=== PATIENT | male | born 1935 | race Caucasian/White ===

== ENCOUNTER 2019-09-29 16:28 | Outpatient (CLI) | payer MEDICARE, OTHER | END 2019-09-29 16:29 | disposition short-term general hospital (02) | LOC: EMS 16:28 | PROVIDERS: ATTEND Surgery | DX: S79.912A Unspecified injury of left hip, initial encounter (principal); W01.198A Fall on same level from slipping, tripping and stumbling with subsequent striking against other object, initial encounter; Y93.01 Activity, walking, marching and hiking; Y92.009 Unspecified place in unspecified non-institutional (private) residence as the place of occurrence of the external cause | CPT/HCPCS: A0425; A0427 ==

== ENCOUNTER 2022-01-19 16:56 | Outpatient (CLI) | payer MEDICARE, OTHER | END 2022-01-19 16:57 | disposition left against medical advice (07) | LOC: EMS 16:56 | DX: Z03.89 Encounter for observation for other suspected diseases and conditions ruled out (principal) ==

== ENCOUNTER 2022-01-27 16:02 | Outpatient (CLI) | payer MEDICARE, OTHER | END 2022-01-27 16:03 | disposition EMS.NT | LOC: EMS 16:02 | DX: R53.1 Weakness (principal) ==

== ENCOUNTER 2022-02-16 10:46 | Outpatient (CLI) | payer MEDICARE, OTHER | END 2022-02-16 10:47 | disposition EMS.NT | LOC: EMS 10:46 | DX: Z03.89 Encounter for observation for other suspected diseases and conditions ruled out (principal) ==

== ENCOUNTER 2022-12-09 13:17 | Emergency (ER) | payer MEDICARE, OTHER ==
--- OUTSIDE RECORDS SUMMARY | 2022-12-09 14:17 | EXTERNAL MEDICAL SUMMARY RPT | Continuity of Care Document ---
Author Name Unknown Address [address] [place] [address] Phone Organization [facility] Address [address] [place] [address] Phone Care Team Providers Care Stockholder Name Role Phone Unavailable Unavailable Unavailable Jomar Bentley, Angel Unavailable Unavailable Em Patient Registrar Ii, Keiko Unavailab le Unavailable Medications date description facility 2022-12-09 00:00 paroxetine hcl [facility] 2022-12-09 00:00 paroxetine hcl [facility] 2022-12-09 00:00 paroxetine hcl [facility] 2022-12-09 00:00 paroxetine hcl [facility] Problems date description facility 2022-12-09 00:00 Edema of foot [facility] 2022-12-09 00:00 No current problems or disability - unknown [facility] 2022-12-09 00:00 History of fall [facility] 2022-12-09 00:00 Edema [facility] 2022-12-09 00:00 Localized edema [facility] 2022-12-09 00:00 Personal history of fall [facility] 2022-12-09 00:00 History of falling [facility] Procedures date description facility 2022-12-09 00:00 Visit Code Hold [facility] Social History date description facility 2022-12-09 00:00 Never smoker [facility] 2022-12-09 00:00 Unknown if ever smoked [facility] [place] Vital Signs date measurement value units 2022-12-09 00:00 BMI 19.78 kg/m2 2022-12-09 00:00 BP_diastolic 70 mmHg 2022-12-09 00:00 BP_systolic 139 mmHg 2022-12-09 00:00 heart_rate 61 /min 2022-12-09 00:00 height_metric 187.96 cm 2022-12-09 00:00 height_standard 74 in 2022-12-09 00:00 respiration_rate 15 /min 2022-12-09 00:00 temperature_metric 36.28 C 2022-12-09 00:00 temperature_standard 97.3 F 2022-12-09 00:00 weight_metric 69.63 kg 2022-12-09 00:00 weight_standard 153.5 lb
--- NOTE | 2022-12-09 14:18 | ED Physician Documentation ---
History of Present Illness - Stated complaint Stated Complaint: SENT BY PCP - Chief complaint Chief Complaint: Ext Problem - Additonal information Additional information: 87-year-old male presents to the emergency department for evaluation of progressive lower extremity leg swelling that began about 1 week ago. Patient does have a history of dementia. His provides most of the history. States that with his dementia has been having increasing mobility issues so has been staying in bed much of the time. She has noticed over the last week that his legs have started to swell. He has not had any complaints of chest pain, shortness of air or hemoptysis. He takes no prescribed medications with the exception of paroxetine. Review of Systems Unable to obtain: Dementia Cardiac: reports: Other (Lower extremity swelling bilaterally) PD PAST MEDICAL HISTORY - Past Medical History Neuro: Dementia - Present Medications Home Medications: Ambulatory Orders Medication Instructions Recorded Confirmed Oxycodone HCl [Roxicodone] 2.5 - 5 mg PO Q6H PRN #14 tablet 01/17/22 Apixaban [Eliquis] 5 mg PO BID #60 tablet 12/09/22 Furosemide [Lasix] 20 mg PO DAILY #3 tablet 12/09/22 - Allergies Allergies/Adverse Reactions: Allergies Allergy/AdvReac Type Severity Reaction Status Date / Time Penicillins Allergy Unknown Verified 01/17/22 15:20 - Social History Does the pt smoke?: No Does the pt have substance abuse?: No PD ED PE NORMAL - General General: No acute distress, Well developed/nourished. No: Alert and oriented X 3 (Pleasantly demented.) - HEENT HEENT: Atraumatic - Cardiac Cardiac: RRR, No murmur, Strong equal pulses, Other (2+ pitting edema bilateral lower extremities below the knee. No posterior calf pain tenderness. No erythema or induration noted. No sores or lesions.) - Respiratory Respiratory: No respiratory distress, Clear bilaterally - Abdomen Abdomen: Normal bowel sounds, Soft, Non tender, Non distended - Derm Derm: Normal color, Warm and dry, No rash - Extremities Extremities: No deformity - Neuro Neuro: travel counselor 2-12 intact Eye Opening: Spontaneous Motor: Obeys Commands Verbal: Oriented GCS Score: 15 Results - Vitals Vitals: Vital Signs - 24 hr 12/09/22 12/09/22 13:44 15:43 Temperature 36.9 C Heart Rate 71 48 L Respiratory 19 13 Rate Blood Pressure 119/79 127/63 O2 Saturation 99 98 Oxygen O2 Source Room air - EKG (time done) 1436 EKG releavant findings:: EKG personally interpreted by author of this note. Relevant findings are: Rate: Rate (enter#) (48) Rhythm: Sinus bradycardia [place]: Normal Intervals: RBBB. No: Normal [place] (Short), Prolonged QT QRS: Normal Ischemia: Non specific changes Compare to prior EKG: Old EKG unavailable Computer interpretation: Agree with computer - Labs Labs: Laboratory Tests 12/09/22 12/09/22 12/09/22 14:10 14:10 14:10 WBC 6.0 RBC 4.88 Hgb 14.3 Hct 44.0 MCV 90.2 MCH 29.3 MCHC 32.5 RDW 13.2 Plt Count 125 L MPV 9.9 Neut # (Auto) 3.8 Lymph # (Auto) 1.5 Gem # (Auto) 0.6 Eos # (Auto) 0.1 Baso # (Auto) 0.0 Absolute Nucleated RBC 0.00 Nucleated RBC % 0.0 INR (Fingerstick) Sodium 140 Potassium 3.9 Chloride 103 Carbon Dioxide 30 Anion Gap 7.0 BUN 23 H Creatinine 1.0 Estimated GFR (MDRD) 71 L Glucose 110 H Calcium 8.6 Total Bilirubin 0.9 AST 21 ALT 21 Alkaline Phosphatase 66 B-Natriuretic Peptide 163 H Total Protein 5.7 L Albumin 3.4 Globulin 2.3 Albumin/Globulin Ratio 1.5 Lipase 41 12/09/22 17:43 WBC RBC Hgb Hct MCV MCH MCHC RDW Plt Count MPV Neut # (Auto) Lymph # (Auto) Gem # (Auto) Eos # (Auto) Baso # (Auto) Absolute Nucleated RBC Nucleated RBC % INR (Fingerstick) 1.1 Sodium Potassium Chloride Carbon Dioxide Anion Gap BUN Creatinine Estimated GFR (MDRD) Glucose Calcium Total Bilirubin AST ALT Alkaline Phosphatase B-Natriuretic Peptide Total Protein Albumin Globulin Albumin/Globulin Ratio Lipase - Rads (name of study) cxr Relevant Findings:: Final report received (No consolidation. Right posterior ninth rib fracture. Appears chronic.) US DVT Relevant Findings:: Final report received (Left popliteal and peroneal DVT) PD Medical Decision Making - ED course Complexity details: reviewed results, re-evaluated patient, considered differential, d/w patient ED course: 87-year-old male who has a history of dementia presents to the emergency department for evaluation of 1 week swelling bilateral lower extremities. On exam both legs are equally swollen though the left one is mildly tender to touch. He is not on any anticoagulation. Has no history of DVT, cancer, heart failure or stroke. I did obtain CBC, electrolytes and PT/INR. Per my interpretation no acute worrisome findings. His BNP is normal. Normal renal function. Chest x-ray shows an old right-sided rib fracture but no pneumothorax, pleural effusion or findings suggest congestive heart failure. Given the mild tenderness on the left leg bilateral lower extremity ultrasounds were obtained to rule out DVT. Unfortunately there are findings of a left popliteal and peroneal DVT. I discussed this finding with the patient and his at the bedside. He will be started on Eliquis 10 mg twice daily for the next week followed by 5 mg thereafter. I have advised the that he will need referral to hematology oncology. We discussed the usual emergent return precautions for any concerns of bleeding or falls in the setting of anticoagulation. His was concerned because he is lost weight recently and has had fatigue. I discussed with her that in the setting of DVT he should be screened by his doctor for concerns of cancer. Patient is discharged home with usual emergent return precautions discussed. Impression: Dementia Left popliteal/peroneal DVT Departure - Departure Disposition: 01 Home, Self Care Clinical Impression: Swelling of both lower extremities, History of dementia Left leg DVT Qualifiers: Affected thrombotic vein of extremity: popliteal Chronicity: acute Qualified Code(s): I82.432 - Acute embolism and thrombosis of left popliteal vein Condition: Stable Record reviewed to determine appropriate education?: Yes Instructions: DVT Tx, Apixaban oral tablets Prescriptions: Apixaban [Eliquis] 5 mg PO BID #60 tablet Furosemide [Lasix] 20 mg PO DAILY #3 tablet Comments: Anthony, you were seen today in the ER because for about a week you have been having progressive swelling in both your legs. Your labs today did not show any worrisome findings. You do not have signs of heart failure. Your chest x-ray did not show any findings of pleural effusion or pneumothorax though there is an old right-sided rib fracture that is very chronic and not new today. The ultrasound that we did of both your legs does show a left leg deep vein thrombosis. It is in the popliteal and peroneal vein. Is not clear why you have developed this though sometimes blood clots can be a sign of cancer. We are starting you on anticoagulation Eliquis. The first week you will take 10 mg twice a day then you will take 5 mg twice a day thereafter. If you have any falls, hit your head, have sudden headache, slurred speech, facial droop, blood in your urine, black stools you do need to return immediately to the ER. I am starting you on a medication called Lasix which she will take for the next 3 days. This is a water pill and will help you reduce your edema. It is very important you talk about this ED visit with your primary care doctor. You should be referred to a cage cashier/oncologist for further evaluation of why you have developed the DVT. As I discussed at the bedside sometimes they are a sign of cancer and your primary care doctor may want to consider a work-up for evaluation of cancer as you have also been reporting that you are fatigued and weak
[2022-12-09 14:21] LABS: BASOPHILS % (AUTO) 0.7 %; EOSINOPHILS # (AUTO) 0.1 10^3/uL (0.0-0.7); EOSINOPHILS % (AUTO) 1.3 %; HGB - HEMOGLOBIN 14.3 g/dL (14.0-18.0); LYMPHOCYTES # (AUTO) 1.5 10^3/uL (1.5-3.5); LYMPHOCYTES % (AUTO) 24.7 %; MEAN CORPUSCULAR HEMOGLOBIN 29.3 pg (27.0-31.0); MEAN CORPUSCULAR HGB CONC 32.5 g/dL (32.0-36.0); MEAN CORPUSCULAR VOLUME 90.2 fL (80.0-94.0); MEAN PLATELET VOLUME 9.9 fL (7.4-11.4); MONOCYTES # (AUTO) 0.6 10^3/uL (0.0-1.0); MONOCYTES % (AUTO) 9.4 %; NEUTROPHILS # (AUTO) 3.8 10^3/uL (1.5-6.6); NEUTROPHILS % (AUTO) 62.9 %; PLT - PLATELET COUNT 125 10^3/uL (130-450); RED BLOOD COUNT 4.88 10^6/uL (4.70-6.10); RED CELL DISTRIBUTION WIDTH 13.2 % (12.0-15.0)
[2022-12-09 14:30] LABS: ALBUMIN 3.4 g/dL (3.2-5.5); ALBUMIN/GLOBULIN RATIO 1.5 (1.0-2.2); BILIRUBIN,TOTAL 0.9 mg/dL (0.2-1.0); CALCIUM 8.6 mg/dL (8.5-10.3); POTASSIUM 3.9 mmol/L (3.5-5.0); TOTAL PROTEIN 5.7 g/dL (6.7-8.2)
--- NOTE | 2022-12-09 14:36 | XRAY Report ---
PROCEDURE: Chest 1 View X-Ray INDICATIONS: Chest Pain TECHNIQUE: One view of the chest was acquired. COMPARISON: None. FINDINGS: Surgical changes and devices: None. Lungs and pleura: No pleural effusions or pneumothorax. Lungs are clear. Mediastinum: Mediastinal contours appear normal. Heart size is normal. Bones and chest wall: No suspicious bony lesions. Right posterior ninth rib fracture. Overlying soft tissues appear unremarkable. IMPRESSION: No consolidation. Right posterior ninth rib fracture. Appears chronic. Reviewed by: Darvin Sims MD on 12/09/2022 2:35 PM PDT Approved by: Darvin Sims MD on 12/09/2022 2:35 PM PDT Station ID: [id number]
--- NOTE | 2022-12-09 18:08 | Ultrasound Report ---
PROCEDURE: Duplex Ext Veins Bilateral INDICATIONS: GIA Byrne TECHNIQUE: Real-time imaging, as well as color and pulse Doppler interrogation, were performed of the deep veins of both legs from the inguinal ligament to the popliteal fossa. COMPARISON: None FINDINGS: Right leg: The deep veins are normally compressible, and free of intraluminal thrombus. Color and pu lse Doppler demonstrate normal phasic intravascular flow. There is normal augmentation response to d istal compression maneuver. Left leg: Filling defects are seen within left popliteal vein and lateral branch of left peroneal vei n with absence of flow. Poor compressibility in the above-mentioned veins also seen. IMPRESSION: 1. Occlusive venous thrombosis in left popliteal vein and peroneal vein as above. 2. No evidence of DVT in visualized right lower extremity veins. Reviewed by: Fer Cartagena MD on 12/09/2022 6:07 PM PDT Approved by: Fer Cartagena MD on 12/09/2022 6:07 PM PDT Station ID: [id number]
[2022-12-09 18:47] VITALS: BP 138/67
== END 2022-12-09 18:45 | disposition home or self-care (01) ==
LOC: ED 13:17
DX: I82.452 Acute embolism and thrombosis of left peroneal vein (principal); I82.432 Acute embolism and thrombosis of left popliteal vein; R60.0 Localized edema
CPT/HCPCS: 36415; 51798; 80053; 83690; 83880; 85025; 85610; 93005; 93970; 99284

== ENCOUNTER 2022-12-24 08:02 | Outpatient (CLI) | payer MEDICARE, OTHER | END 2022-12-24 23:59 | disposition critical access hospital (66) | LOC: EMS 08:02 | DX: S50.812A Abrasion of left forearm, initial encounter (principal); W19.XXXA Unspecified fall, initial encounter; Y92.002 Bathroom of unspecified non-institutional (private) residence as the place of occurrence of the external cause; Z79.01 Long term (current) use of anticoagulants ==

== ENCOUNTER 2022-12-24 09:52 | Emergency (ER) | payer MEDICARE, OTHER ==
--- NOTE | 2022-12-24 10:09 | ED Physician Documentation ---
PD HPI Fall - Stated complaint Stated Complaint: HEAD INJURY, GLF - History obtained from History obtained from: Patient - History of Present Illness Mechanism of injury: Unknown Fall distance: Standing position Where injury occurred: Home Timing - onset: Unknown (unknown how long on the floor, but less that few hours. Pt was okay ealier morning. did not hear any thumps nor patient calling out (he will usually call for her when he needs help). She went upstairs to check on him and he was on floor in bathroom with pants down around his ankles. no injury.) Injury(ies) location: Other (patient did not have any areas of pain (other than prior left leg swelling aching he has had 3 weeks). He is recently on Eliquis due to Dx of leg DVT 3 weeks ago. states the leg swelling has improved only moderately.) Associated symptoms: No: LOC, AMS (history of dementia and very poor short term memory, so he does not remember the reason for falling or if symptoms preceding.) Contributing factors: Anticoagulated Similar symptoms before: Has not had sx before Recently seen: Emergency Dept (2 weeks ago for swelling and pain left lower leg. Dx with DVT and started on Eliquis.) Review of Systems Unable to obtain: Dementia, Other (info from his who is close caregiver as pt with poor short term memory. Pt able to give current symptoms.) Constitutional: denies: Fever Cardiac: reports: Pedal edema (for 3 weeks and Dx with DVT 2 weeks ago.). denies: Chest pain / pressure Respiratory: denies: Dyspnea, Cough, Wheezing GI: denies: Abdominal Pain, Vomiting, Diarrhea, Bloody / black stool Neurologic: denies: Focal weakness, Numbness, Headache PD PAST MEDICAL HISTORY - Past Medical History Cardiovascular: None Respiratory: None Neuro: Dementia - Present Medications Home Medications: Ambulatory Orders Medication Instructions Recorded Confirmed Apixaban [Eliquis] 5 mg PO BID #60 tablet 12/09/22 12/24/22 PARoxetine [Paxil] 10 mg PO DAILY 12/24/22 12/24/22 - Allergies Allergies/Adverse Reactions: Allergies Allergy/AdvReac Type Severity Reaction Status Date / Time Penicillins Allergy Unknown Verified 01/17/22 15:20 - Social History Does the pt smoke?: No Does the pt have substance abuse?: No PD ED PE NORMAL - Vitals Vital signs reviewed: Yes - General General: Alert and oriented X 3, No acute distress, Well developed/nourished - HEENT HEENT: Atraumatic (prominent occipital ridges both sides, but no swelling nor tenderness).), Pharynx benign - Neck Neck: Supple, no meningeal sign, No adenopathy - Cardiac Cardiac: RRR, No murmur, Other (no chestwall tenderness. ) - Respiratory Respiratory: No respiratory distress, Clear bilaterally - Abdomen Abdomen: Soft, Non tender - Derm Derm: Normal color, Warm and dry - Extremities Extremities: Normal ROM s pain, Other (there is edema and some tenderness left lower leg/calf. Mild edema right lower leg around ankle and lower de [place]. ) - Neuro Neuro: No motor deficit, Normal speech. No: Alert and oriented X 3 (person and place. does not know month date. ) Results - Vitals Vitals: Oxygen O2 Source Room air - Labs Labs: Laboratory Tests 12/24/22 12/24/22 12/24/22 10:14 10:40 10:40 WBC 5.6 RBC 4.83 Hgb 14.3 Hct 44.3 MCV 91.7 MCH 29.6 MCHC 32.3 RDW 13.6 Plt Count 100 L MPV 10.3 Neut # (Auto) 3.8 Lymph # (Auto) 1.1 L [place] # (Auto) 0.7 Eos # (Auto) 0.0 Baso # (Auto) 0.0 Absolute Nucleated RBC 0.00 Nucleated RBC % 0.0 Sodium 136 Potassium 4.0 Chloride 102 Carbon Dioxide 29 Anion Gap 5.0 L BUN 25 H Creatinine 1.0 Estimated GFR (MDRD) 71 L Glucose 89 POC Whole Bld Glucose 115 H Calcium 9.1 Magnesium 1.9 Total Bilirubin 0.7 AST 33 ALT 20 Alkaline Phosphatase 92 Total Protein 5.9 L Albumin 3.8 Globulin 2.1 Albumin/Globulin Ratio 1.8 Lipase 28 - Rads (name of study) head CT Relevant Findings:: Prelim report reviewed, EMP independent interpretation of test (no ICH nor acute process. ) PD Medical Decision Making - ED course Complexity details: reviewed results (head CT without acute ICH. ), considered differential (unclear if fall/syncope. The positioning on floor with pants around his ankles are suggestive that he tried to get up and walk with pants still down. So likely trip. He does nto have any pains, and feeling otherwise well. No chest pain nor dyspnea (as might think if had PE). ECG and vitals are good.), d/w patient ED course: He apparently fell. Feels okay otherwise and not suspicious for syncope (no residual abnomral). Is on Eliquis, so got CT head even without BOYLE nor head contusion. This was normal. He has not been up as much the past 2 weeks with DVT diagnosis and leg hurts. I think this accounts for some mild edema in right leg and the left not improved much. Suggested elevating more ( says he likes legs down in his chair and does not remember that they should be up to help the swelling due to his dementia). Can use compressive socks or wrap as well. Some leg exercises and getting him up and walking some is good. Departure - Departure Disposition: 01 Home, Self Care Clinical Impression: Ground-level fall, Anticoagulant long-term use Forearm abrasion Qualifiers: Encounter type: initial encounter Laterality: left Qualified Code(s): S50.812A - Abrasion of left forearm, initial encounter Condition: Stable Record reviewed to determine appropriate education?: Yes Comments: The CT scan of your head appears normal. No signs of bleeding or injury. Your basic blood test showing blood count, chemistry panel/electrolytes, kidney function, blood sugar is good as well. Your blood pressure and heart rhythm are good here. No obvious cause for you being on the floor. Presume perhaps a mechanical fall from stumbling. Take your usual medications that you would have had this morning, take them when you get home. Take your usual evening ones on the schedule time this evening. Regarding the swelling in the legs, I would use some compressive socks and also try to elevate the legs more often and some foot exercises when you are rested to improve the return blood flow. Forms: PCP List Discharge Date/Time: 12/24/22 12:30
[2022-12-24 10:48] LABS: BASOPHILS % (AUTO) 0.5 %; EOSINOPHILS % (AUTO) 0.7 %; HCT - HEMATOCRIT 44.3 % (42.0-52.0); HGB - HEMOGLOBIN 14.3 g/dL (14.0-18.0); LYMPHOCYTES # (AUTO) 1.1 10^3/uL (1.5-3.5); LYMPHOCYTES % (AUTO) 19.9 %; MEAN CORPUSCULAR HEMOGLOBIN 29.6 pg (27.0-31.0); MEAN CORPUSCULAR HGB CONC 32.3 g/dL (32.0-36.0); MEAN CORPUSCULAR VOLUME 91.7 fL (80.0-94.0); MEAN PLATELET VOLUME 10.3 fL (7.4-11.4); MONOCYTES # (AUTO) 0.7 10^3/uL (0.0-1.0); MONOCYTES % (AUTO) 11.9 %; NEUTROPHILS # (AUTO) 3.8 10^3/uL (1.5-6.6); NEUTROPHILS % (AUTO) 66.6 %; PLT - PLATELET COUNT 100 10^3/uL (130-450); RED BLOOD COUNT 4.83 10^6/uL (4.70-6.10); RED CELL DISTRIBUTION WIDTH 13.6 % (12.0-15.0); WHITE BLOOD COUNT 5.6 x10^3/uL (4.8-10.8)
[2022-12-24 11:20] LABS: ALBUMIN 3.8 g/dL (3.2-5.5); ALBUMIN/GLOBULIN RATIO 1.8 (1.0-2.2); BILIRUBIN,TOTAL 0.7 mg/dL (0.2-1.0); CALCIUM 9.1 mg/dL (8.5-10.3); MAGNESIUM 1.9 mg/dL (1.7-2.3); TOTAL PROTEIN 5.9 g/dL (6.4-8.9)
--- NOTE | 2022-12-24 11:44 | CT Report ---
PROCEDURE: CT brain without contrast INDICATIONS: fall, on DOAC TECHNIQUE: Noncontrast 4.5 mm thick angled axial sections acquired from the foramen magnum to the vertex. For r adiation dose reduction, the following was used: automated exposure control, adjustment of mA and/or kV according to patient size. COMPARISON: None. FINDINGS: Image quality: Excellent. CSF spaces: Basal cisterns are patent. No extra-axial fluid collections. Ventricles are normal in size and shape. Brain: No midline shift. No intracranial masses or hemorrhage. Bond-white matter interface is norm al. Moderate atrophy and multifocal white matter chronic ischemic change present. Atherosclerotic va scular calcification noted in the cavernous segments of both internal carotid arteries Skull and face: Calvarium and visualized facial bones are intact, without suspicious lesions. Sinuses: Visualized sinuses and mastoids are clear. Incidental pneumatization of both turbinates IMPRESSION: Atrophy and chronic ischemic change without intracranial hemorrhage or mass effect Reviewed by: Yunior Juarez MD on 12/24/2022 10:43 AM DEWAYNE Approved by: Yunior Juarez MD on 12/24/2022 10:43 AM [id number] Station ID: [id number]
[2022-12-24 12:24] VITALS: BP 127/67
== END 2022-12-24 12:30 | disposition home or self-care (01) ==
LOC: ED 09:52
DX: S50.812A Abrasion of left forearm, initial encounter (principal); W18.30XA Fall on same level, unspecified, initial encounter; F03.90 Unspecified dementia, unspecified severity, without behavioral disturbance, psychotic disturbance, mood disturbance, and anxiety; Z79.01 Long term (current) use of anticoagulants
CPT/HCPCS: 36415; 80053; 83690; 83735; 85025; 93005; 99283; 99284

== ENCOUNTER 2023-01-06 20:32 | Outpatient (CLI) | payer MEDICARE, OTHER | END 2023-01-06 23:59 | disposition EMS.NT | LOC: EMS 20:32 | DX: Z03.89 Encounter for observation for other suspected diseases and conditions ruled out (principal) ==

== ENCOUNTER 2023-01-08 21:51 | Outpatient (CLI) | payer MEDICARE, OTHER | END 2023-01-08 23:59 | disposition EMS.NT | LOC: EMS 21:51 | DX: Z03.89 Encounter for observation for other suspected diseases and conditions ruled out (principal) ==

== ENCOUNTER 2023-01-22 18:37 | Outpatient (CLI) | payer MEDICARE, OTHER | END 2023-01-22 23:59 | disposition EMS.NT | LOC: EMS 18:37 | DX: Z03.89 Encounter for observation for other suspected diseases and conditions ruled out (principal) ==

== ENCOUNTER 2023-01-30 18:21 | Outpatient (CLI) | payer MEDICARE, OTHER | END 2023-01-30 23:59 | disposition left against medical advice (07) | LOC: EMS 18:21 | DX: I10 Essential (primary) hypertension (principal); Z79.01 Long term (current) use of anticoagulants ==

== ENCOUNTER 2023-03-06 18:53 | Outpatient (CLI) | payer MEDICARE, OTHER | END 2023-03-06 18:54 | disposition critical access hospital (66) | LOC: EMS 18:53 | DX: K92.0 Hematemesis (principal); R10.32 Left lower quadrant pain; R53.1 Weakness; R06.02 Shortness of breath; Z79.01 Long term (current) use of anticoagulants; R00.0 Tachycardia, unspecified | CPT/HCPCS: A0425; A0427 ==

== ENCOUNTER 2023-03-06 19:29 | Emergency (ER) | payer MEDICARE, OTHER ==
[2023-03-06] MEDS ORDERED: PROTHROMBIN COMPLEX CONC 500 UNIT VIAL IVP STA (19:33)
[2023-03-06] MEDS ORDERED: ROCURONIUM 50 MG/5 ML VIAL IVP STA (19:34)
[2023-03-06] MEDS ORDERED: KETAMINE 500 MG/10 ML VIAL IVP STA (19:34)
[2023-03-06 19:59] LABS: BASOPHILS % (AUTO) 0.4 %; EOSINOPHILS % (AUTO) 0.3 %; HGB - HEMOGLOBIN 9.9 g/dL (14.0-18.0); LYMPHOCYTES % (AUTO) 13.4 %; MEAN CORPUSCULAR HEMOGLOBIN 28.4 pg (27.0-31.0); MEAN CORPUSCULAR VOLUME 94.8 fL (80.0-94.0); MEAN PLATELET VOLUME 10.8 fL (7.4-11.4); NEUTROPHILS % (AUTO) 73.5 %; PLT - PLATELET COUNT 199 10^3/uL (130-450); RED BLOOD COUNT 3.48 10^6/uL (4.70-6.10); RED CELL DISTRIBUTION WIDTH 13.8 % (12.0-15.0); WHITE BLOOD COUNT 17.1 x10^3/uL (4.8-10.8)
[2023-03-06 20:01] LABS: ABNORMAL LYMPHS % (MANUAL) 0 %
--- NOTE | 2023-03-06 20:09 | ED Physician Documentation ---
PD HPI GI BLEED - Stated complaint Stated Complaint: VOMITING BLOOD - Chief complaint Chief Complaint: Critical Care - History obtained from History obtained from: Patient, EMS - Additional information Additional information: 87-year-old gentleman who is on Eliquis and has a history of dementia per the chart presents by ambulance for massive upper GI bleeding. Several episodes of significant bloody vomitus prior to arrival. The is not here on arrival and CODE STATUS is unknown. I am unable to find a POLST in the chart and the patient states he is full code. EMS had difficulty with IV access and he has an intraosseous line in the right tibia. PD PAST MEDICAL HISTORY - Past Medical History Cardiovascular: None Respiratory: None Neuro: Dementia - Present Medications Home Medications: Ambulatory Orders Medication Instructions Recorded Confirmed Apixaban [Eliquis] 5 mg PO BID #60 tablet 12/09/22 12/24/22 PARoxetine [Paxil] 10 mg PO DAILY 12/24/22 12/24/22 - Allergies Allergies/Adverse Reactions: Allergies Allergy/AdvReac Type Severity Reaction Status Date / Time Penicillins Allergy Unknown Verified 01/17/22 15:20 - Social History Does the pt smoke?: No Smoking Status: Never smoker Does the pt have substance abuse?: No PD ED PE NORMAL - Vitals Vital signs reviewed: Yes - General General: Other (He appears ill, he is covered in blood and repeatedly vomits up significant amounts of dark bloody material. He is alert and oriented to person and place, time and events are questionable. He is quite pale.) - Cardiac Cardiac: Other (Tachycardic) - Respiratory Respiratory: Clear bilaterally - Abdomen Abdomen: Non tender - Extremities Extremities: Other (IO in the right tibia) - Neuro Eye Opening: Spontaneous Motor: Obeys Commands Verbal: Confused GCS Score: 14 Results - Vitals Vitals: Vital Signs - 24 hr 03/06/23 19:29 Temperature 36.1 C L Heart Rate 128 H Respiratory 16 Rate Blood Pressure 83/60 L O2 Saturation 92 Oxygen O2 Source Nasal cannula - EKG (time done) 2014 EKG releavant findings:: EKG personally interpreted by author of this note. Relevant findings are: Rate: Rate (enter#) (124) Rhythm: Sinus tachycardia Intervals: RBBB, Other (LPFB) QRS: Normal Ischemia: ST depression Computer interpretation: Agree with computer - Labs Labs: Laboratory Tests 03/06/23 03/06/23 03/06/23 19:49 19:49 19:49 WBC 17.1 H RBC 3.48 L Hgb 9.9 L Hct 33.0 L MCV 94.8 H MCH 28.4 MCHC 30.0 L RDW 13.8 Plt Count 199 MPV 10.8 Neut # (Auto) Not Reportable Lymph # (Auto) Not Reportable Freestone # (Auto) Not Reportable Eos # (Auto) Not Reportable Baso # (Auto) Not Reportable Absolute Nucleated RBC Not Reportable Total Counted 100 Band Neuts % (Manual) 1 Abnorm Lymph % (Manual) 0 Nucleated RBC % Not Reportable Neutrophils # (Manual) 13.7 H Lymphocytes # (Manual) 2.7 Monocytes # (Manual) 0.7 Eosinophils # (Manual) 0.0 Basophils # (Manual) 0.0 Differential Comment MANUAL DIFFERENTIAL Platelet Estimate NORMAL (130-450,000) Platelet Morphology NORMAL APPEARANCE RBC Morph Micro Appear NORMAL APPEARANCE PT 15.3 H INR 1.4 H APTT Fibrinogen Bld Gas Analysis Time Sample Site ABG pH ABG pCO2 ABG pO2 ABG HCO3 ABG Total CO2 ABG O2 Saturation ABG Base Excess Marcelo Test VBG pH VBG pCO2 VBG pO2 VBG HCO3 VBG Total CO2 VBG O2 Saturation VBG Base Excess Respiration Rate O2 Delivery Device Vent Mode FiO2 Tidal Volume PEEP Pressure Support Vent Sodium 138 Potassium 4.5 Chloride 106 Carbon Dioxide 18 L Anion Gap 14.0 H BUN 36 H Creatinine 0.7 Estimated GFR (MDRD) 107 Glucose 202 H Lactic Acid Calcium 7.5 L Phosphorus 4.3 Magnesium 1.7 Total Bilirubin 0.6 AST 13 ALT 15 Alkaline Phosphatase 78 Total Protein 4.0 L Albumin 2.2 L Globulin 1.8 L Albumin/Globulin Ratio 1.2 SARS-CoV-2 (PCR) Blood Type Antibody Screen Crossmatch IS Only 03/06/23 03/06/23 03/06/23 19:49 19:49 20:00 WBC RBC Hgb Hct MCV MCH MCHC RDW Plt Count MPV Neut # (Auto) Lymph # (Auto) Freestone # (Auto) Eos # (Auto) Baso # (Auto) Absolute Nucleated RBC Total Counted Band Neuts % (Manual) Abnorm Lymph % (Manual) Nucleated RBC % Neutrophils # (Manual) Lymphocytes # (Manual) Monocytes # (Manual) Eosinophils # (Manual) Basophils # (Manual) Differential Comment Platelet Estimate Platelet Morphology RBC Morph Micro Appear PT INR APTT Fibrinogen Bld Gas Analysis Time Sample Site ABG pH ABG pCO2 ABG pO2 ABG HCO3 ABG Total CO2 ABG O2 Saturation ABG Base Excess Marcelo Test VBG pH VBG pCO2 VBG pO2 VBG HCO3 VBG Total CO2 VBG O2 Saturation VBG Base Excess Respiration Rate O2 Delivery Device Vent Mode FiO2 Tidal Volume PEEP Pressure Support Vent Sodium Potassium Chloride Carbon Dioxide Anion Gap BUN Creatinine Estimated GFR (MDRD) Glucose Lactic Acid 8.2 H* Calcium Phosphorus Magnesium Total Bilirubin AST ALT Alkaline Phosphatase Total Protein Albumin Globulin Albumin/Globulin Ratio SARS-CoV-2 (PCR) NOT DETECTED Blood Type O POSITIVE Antibody Screen NEGATIVE Crossmatch IS Only See Detail 03/06/23 03/06/23 03/06/23 20:50 21:16 21:16 WBC 24.3 H RBC 4.11 L Hgb 12.1 L Hct 39.0 L MCV 94.9 H MCH 29.4 MCHC 31.0 L RDW 13.8 Plt Count 213 MPV 9.9 Neut # (Auto) Lymph # (Auto) Freestone # (Auto) Eos # (Auto) Baso # (Auto) Absolute Nucleated RBC Total Counted Band Neuts % (Manual) Abnorm Lymph % (Manual) Nucleated RBC % Neutrophils # (Manual) Lymphocytes # (Manual) Monocytes # (Manual) Eosinophils # (Manual) Basophils # (Manual) Differential Comment Platelet Estimate Platelet Morphology RBC Morph Micro Appear PT 14.5 H INR 1.4 H APTT 30.2 Fibrinogen 517 H Bld Gas Analysis Time 2103 Sample Site LEFT RADIAL ABG pH 7.10 L* ABG pCO2 58 H ABG pO2 105 H ABG HCO3 17.3 L ABG Total CO2 19.0 L ABG O2 Saturation 96 ABG Base Excess -12.7 L Marcelo Test POSITIVE VBG pH VBG pCO2 VBG pO2 VBG HCO3 VBG Total CO2 VBG O2 Saturation VBG Base Excess Respiration Rate 16 O2 Delivery Device VENTILATOR Vent Mode SIMV FiO2 60.00 Tidal Volume 400 PEEP 5 Pressure Support Vent 16 Sodium Potassium Chloride Carbon Dioxide Anion Gap BUN Creatinine Estimated GFR (MDRD) Glucose Lactic Acid Calcium Phosphorus Magnesium Total Bilirubin AST ALT Alkaline Phosphatase Total Protein Albumin Globulin Albumin/Globulin Ratio SARS-CoV-2 (PCR) Blood Type Antibody Screen Crossmatch IS Only 03/06/23 03/06/23 21:16 21:16 WBC RBC Hgb Hct MCV MCH MCHC RDW Plt Count MPV Neut # (Auto) Lymph # (Auto) Freestone # (Auto) Eos # (Auto) Baso # (Auto) Absolute Nucleated RBC Total Counted Band Neuts % (Manual) Abnorm Lymph % (Manual) Nucleated RBC % Neutrophils # (Manual) Lymphocytes # (Manual) Monocytes # (Manual) Eosinophils # (Manual) Basophils # (Manual) Differential Comment Platelet Estimate Platelet Morphology RBC Morph Micro Appear PT INR APTT Fibrinogen Bld Gas Analysis Time Sample Site ABG pH ABG pCO2 ABG pO2 ABG HCO3 ABG Total CO2 ABG O2 Saturation ABG Base Excess Marcelo Test VBG pH 7.173 L* VBG pCO2 55.1 H VBG pO2 67.7 H VBG HCO3 19.8 L VBG Total CO2 21.5 L VBG O2 Saturation 89.6 H VBG Base Excess -9.0 L Respiration Rate O2 Delivery Device Vent Mode FiO2 Tidal Volume PEEP Pressure Support Vent Sodium 140 Potassium 4.7 H Chloride 107 Carbon Dioxide 24 Anion Gap 9.0 BUN 37 H Creatinine 0.6 Estimated GFR (MDRD) 128 Glucose 201 H Lactic Acid Calcium 7.7 L Phosphorus Magnesium 1.7 Total Bilirubin AST ALT Alkaline Phosphatase Total Protein Albumin Globulin Albumin/Globulin Ratio SARS-CoV-2 (PCR) Blood Type Antibody Screen Crossmatch IS Only - Rads (name of study) Single view chest x-ray shows appropriate positioning of central line, ET tube, and enteric tube without other abnormality. Relevant Findings:: Final report received, EMP independent interpretation of test Procedures - Intubation - Major Provider: Emergency physician Medications: Ketamine (200mg), Rocuronium (50mg) Blade: Glidescope Tube: Size-enter number (7.5), Cuffed Confirmation: Direct visualization, Bilateral breath sounds, No abdominal breath sound, End tidal CO2, Pulse ox, Chest xray Complications: No compications - Central Line - Major Central Line Preparation: Unable to obtain consent, Time out completed, Ultrasound used, Sterile prep and drape Central line location: Right IJ Central line type: Triple lumen Central line aftercare: Chlorhexidine disc placed, Secured, Placement confirmed, No pneumothorax, No complications, Bundle checklist complete, Pt tolerated well PD Medical Decision Making - ED course ED course: 87-year-old gentleman presents with massive upper GI bleed in the setting of Eliquis anticoagulation. He is ill and hemodynamically unstable. He says he is full code. The is not available immediately on arrival nor did she answer the phone on my attempt to call her, thus the presumption of full CODE STATUS is trusted and a central line was expeditiously placed and he continued to vomit up bright red blood and he was also intubated. Massive transfusion protocol was activated and I called for 2 units of O- blood initially as well as 2000 of Kcentra. The surgeon was at the bedside but felt he would at least probably be better off at a tertiary facility and we are awaiting the 's arrival for decision making help. The health community marketing coordinator called multiple facilities. I did talk to the [facility] and they are at capacity and declined transfer at this time (8:35 PM. Update: 9 PM he has received 2 units of blood, 1 unit cryoprecipitate, 1 unit of FFP, 2000 units of Kcentra. The bleeding seems to have stopped, there is no output from his NG tube and his vital signs of improved with normotension and only mild resting tachycardia. The is now at the bedside. She has a living will which states that if care were futile he would not want further measures, but I discussed with her that care is not necessarily futile at this point but he is quite ill. She is agreeable to transfer to a higher level of care. Once the blood products are completely completed I will order repeat labs for the massive transfusion protocol. Graciously accepted to the ICU at [facility] by Dr. Jamey Adhikari at 9:09 PM. Cobras are completed and [facility] is activated for transport given the acuity of his illness. During his time in the emergency department and after receiving massive transfusion protocol his vital signs stabilized with significant improvement in his tachycardia and his blood pressure. Also serial labs looked improved with hemoglobin going up, improving acidosis, and the NG output pretty much stopped. The requested that I update the son by phone and this was done, he is an ER nurse in [place]. - Critical Care Time(min): 65 Time Includes: Direct patient care, Review records, Reassess patient, Document care, Coordinate care, Medical consult, Family consult for tx dec Data interpretation: ABG, CXR Procedures included in critical care time: Peripheral IV Procedures excluded from critical care time: Central IV, Intubation, EKG Departure - Departure Disposition: 02 Transfer Acute Care Hosp Clinical Impression: Upper GI bleed, Shock, Anticoagulant long-term use Condition: Critical Forms: PCP List
[2023-03-06] MEDS ORDERED: fentaNYL 2,500 MCG in SODIUM CHLORIDE 0.9% 200 ML IV STA (20:10)
[2023-03-06 20:12] LABS: INR 1.4 (0.8-1.2); PT - PROTHROMBIN TIME 15.3 secs (9.9-12.6)
[2023-03-06] MEDS ORDERED: PANTOPRAZOLE 40 MG VIAL IVP STA ×2 (20:15→20:24)
[2023-03-06 20:16] LABS: ALBUMIN 2.2 g/dL (3.2-5.5); ALBUMIN/GLOBULIN RATIO 1.2 (1.0-2.2); BILIRUBIN,TOTAL 0.6 mg/dL (0.2-1.0); CALCIUM 7.5 mg/dL (8.5-10.3); CREATININE 0.7 mg/dL (0.6-1.3); PHOSPHORUS 4.3 mg/dL (2.5-5.0); POTASSIUM 4.5 mmol/L (3.5-4.5)
[2023-03-06] MEDS ORDERED: OCTREOTIDE 500 MCG in SODIUM CHLORIDE 0.9% 100ML 95 ML IV STA (20:23)
[2023-03-06] MEDS ORDERED: cefTRIAXone 1 GM VIAL IVP STA (20:23)
--- NOTE | 2023-03-06 20:23 | XRAY Report ---
PROCEDURE: Chest for Line Placement INDICATIONS: RIJ CVC TECHNIQUE: One view of the chest was acquired. COMPARISON: 12/09/2022. FINDINGS: Surgical changes and devices: Right internal jugular central venous catheter tip is in SVC. ET tube tip is approximately 2.7 cm above the barry. Enteric tube tip is below the left hemidiaphragm and is in the expected location of proximal stomach lumen. Lungs and pleura: No pleural effusions or pneumothorax. Lungs are clear. Mediastinum: Mediastinal contours appear normal. Heart size is normal. Bones and chest wall: No suspicious bony lesions. Overlying soft tissues appear unremarkable. IMPRESSION: Right internal jugular central venous catheter tip is in SVC. ET tube and enteric tube are in satisfa ctory position. No focal infiltrate, pleural effusion or pneumothorax. Reviewed by: Fer Rivas MD on 03/06/2023 8:22 PM PDT Approved by: Fer Rivas MD on 03/06/2023 8:22 PM PDT Station ID: [id number]
[2023-03-06] MEDS ORDERED: OCTREOTIDE 100 MCG/ML VIAL IVP STA (20:24)
[2023-03-06] MEDS ORDERED: PANTOPRAZOLE 80 MG in SODIUM CHLORIDE 0.9% 100ML 100 ML IV STA (20:24)
[2023-03-06 20:25] LABS: BAND NEUTROPHILS % (MANUAL) 1 %; LYMPHOCYTES # (MANUAL) 2.7 10^3/uL (1.5-3.5); LYMPHOCYTES % (MANUAL) 16 %; MONOCYTES # (MANUAL) 0.7 10^3/uL (0.0-1.0); NEUTROPHILS # (MANUAL) 13.7 10^3/uL (1.5-6.6)
[2023-03-06 20:26] LABS: DIFFERENTIAL COMMENT MANUAL DIFFERENTIAL; PLATELET ESTIMATE, MANUAL NORMAL (130-450,000) (NORMAL); PLATELET MORPHOLOGY NORMAL APPEARANCE (NORMAL); RBC MORPHOLOGY (MULTIPLE) NORMAL APPEARANCE (NORMAL)
--- OUTSIDE RECORDS SUMMARY | 2023-03-06 20:39 | EXTERNAL MEDICAL SUMMARY RPT | Continuity of Care Document ---
Author Name Unknown Address [address] [place] [address] Phone Organization [facility] Address [address] [place] [address] Phone Care Team Providers Care Otm Consultant Name Role Phone Unavailable Unavailable Unavailable Jomar Bentley, Angel Unavailable Unavailable Toen Patient Registrar, Rolando Unavailable U tammy Strickland Patient Registrar Ii, Keiko Unavailab le Unavailable Medications date description facility 2023-01-17 00:00 apixaban [facility] 2023-01-18 00:00 apixaban [facility] 2023-01-17 00:00 buspirone [facility] 2023-01-18 00:00 buspirone [facility] 2023-01-17 00:00 apixaban [facility] 2023-01-18 00:00 apixaban [facility] 2022-12-09 00:00 paroxetine hcl [facility] 2022-12-12 00:00 paroxetine hcl [facility] 2023-01-17 00:00 paroxetine hcl [facility] 2023-01-17 00:00 paroxetine hcl [facility] 2023-01-18 00:00 paroxetine hcl [facility] 2023-01-17 00:00 paroxetine hcl [facility] 2023-01-18 00:00 paroxetine hcl [facility] 2023-01-17 00:00 apixaban [facility] 2023-01-18 00:00 apixaban [facility] 2023-01-17 00:00 paroxetine hcl [facility] 2023-01-18 00:00 paroxetine hcl [facility] 2022-12-09 00:00 paroxetine hcl [facility] 2022-12-12 00:00 paroxetine hcl [facility] 2023-01-17 00:00 paroxetine hcl [facility] 2023-01-17 00:00 paroxetine hcl [facility] 2023-01-18 00:00 paroxetine hcl [facility] 2023-01-17 00:00 buspirone [facility] 2023-01-18 00:00 buspirone [facility] 2022-12-09 00:00 paroxetine hcl [facility] 2022-12-12 00:00 paroxetine hcl [facility] 2023-01-17 00:00 paroxetine hcl [facility] 2023-01-17 00:00 paroxetine hcl [facility] 2023-01-18 00:00 paroxetine hcl [facility] 2023-01-17 00:00 paroxetine hcl [facility] 2023-01-18 00:00 paroxetine hcl [facility] 2023-01-17 00:00 paroxetine hcl [facility] 2023-01-18 00:00 paroxetine hcl [facility] 2022-12-09 00:00 paroxetine hcl [facility] 2022-12-12 00:00 paroxetine hcl [facility] 2023-01-17 00:00 paroxetine hcl [facility] 2023-01-17 00:00 paroxetine hcl [facility] 2023-01-18 00:00 paroxetine hcl [facility] 2023-01-17 00:00 buspirone [facility] [place] 2023-01-18 00:00 buspirone [facility] [place] 2023-01-17 00:00 apixaban [facility] [place] 2023-01-18 00:00 apixaban [facility] [place] 2023-01-17 00:00 buspirone [facility] [place] 2023-01-18 00:00 buspirone [facility] [place] Problems date description facility 2022-12-09 00:00 Edema of foot [facility] [place] 2022-12-09 00:00 Edema of foot [facility] [place] 2022-12-09 00:00 No current problems or disability - unknown [facility] [place] 2022-12-09 00:00 History of fall [facility] [place] 2022-12-09 00:00 History of fall [facility] [place] 2022-12-09 00:00 Edema [facility] [place] 2022-12-09 00:00 Edema [facility] [place] 2022-12-09 00:00 Localized edema [facility] [place] 2022-12-09 00:00 Localized edema [facility] [place] 2022-12-09 00:00 Personal history of fall [facility] [place] 2022-12-09 00:00 Personal history of fall [facility] [place] 2022-12-09 00:00 History of falling [facility] [place] 2022-12-09 00:00 History of falling [facility] [place] 2023-01-17 00:00 Edema of foot [facility] [place] 2023-01-17 00:00 Deep venous thrombos is of lower extremity [facility] [place] 2023-01-17 00:00 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 [facility] [place] 2023-01-17 00:00 Edema [facility] [place] 2023-01-17 00:00 Chronic embolism and thrombosis of unspecified deep veins of left lower extremity [facility] [place] 2023-01-17 00:00 Localized edema [facility] [place] Procedures date description facility 2022-12-09 00:00 Visit Code Hold [facility] [place] 2022-12-09 00:00 Visit Code Hold [facility] [place] 2023-01-17 00:00 Visit Code Hold [facility] [place] Social History date description facility 2022-12-09 00:00 Never smoker [facility] [place] 2022-12-09 00:00 Never smoker [facility] [place] 2022-12-09 00:00 Unknown if ever smoked [facility] [place] Vital Signs date measurement value units 2022-12-09 00:00 BMI 19.78 kg/m2 2022-12-09 00:00 BP_diastolic 70 mmHg 2022-12-09 00:00 BP_systolic 139 mmHg 2022-12-09 00:00 heart_rate 61 /min 2022-12-09 00:00 height_metric 187.96 cm 2022-12-09 00:00 height_standard 74 in 2022-12-09 00:00 respiration_rate 15 /min 2022-12-09 00:00 temperature_metric 36.28 C 2022-12-09 00:00 temperature_standard 97.3 F 2022-12-09 00:00 weight_metric 69.63 kg 2022-12-09 00:00 weight_standard 153.5 lb 2023-01-17 00:00 BMI 19.72 kg/m2 2023-01-17 00:00 BP_diastolic 65 mmHg 2023-01-17 00:00 BP_systolic 127 mmHg 2023-01-17 00:00 heart_rate 53 /min 2023-01-17 00:00 height_metric 187.96 cm 2023-01-17 00:00 height_standard 74 in 2023-01-17 00:00 respiration_rate 15 /min 2023-01-17 00:00 temperature_metric 37 C 2023-01-17 00:00 temperature_standard 98.6 F 2023-01-17 00:00 weight_metric 69.4 kg 2023-01-17 00:00 weight_standard 153 lb
[2023-03-06] MEDS ORDERED: PANTOPRAZOLE 40 MG VIAL ONE (20:53)
[2023-03-06] MEDS ORDERED: OCTREOTIDE 100 MCG/ML VIAL ONE (20:54)
[2023-03-06 21:03] LABS: ABG PCO2 58 mmHg (34-45)
[2023-03-06 21:04] LABS: ABG BASE EXCESS -12.7 mmol/L (-2.0-3.0); ABG HCO3 17.3 mmol/L (22.0-26.0); ABG OXYGEN SATURATION 96 % (94-98); ABG PO2 105 mmHg (80-100); ALLEN TEST POSITIVE
[2023-03-06 21:05] LABS: ABG MODE OF VENTILATION SIMV; ABG RESPIRATORY RATE 16 b/min
[2023-03-06 21:21] LABS: HGB - HEMOGLOBIN 12.1 g/dL (14.0-18.0); MEAN CORPUSCULAR HEMOGLOBIN 29.4 pg (27.0-31.0); MEAN CORPUSCULAR VOLUME 94.9 fL (80.0-94.0); MEAN PLATELET VOLUME 9.9 fL (7.4-11.4); RED BLOOD COUNT 4.11 10^6/uL (4.70-6.10); RED CELL DISTRIBUTION WIDTH 13.8 % (12.0-15.0); WHITE BLOOD COUNT 24.3 x10^3/uL (4.8-10.8)
[2023-03-06 21:33] LABS: VBG HCO3 19.8 mmol/L (23-28); VBG OXYGEN SATURATION 89.6 % (60-80); VBG PCO2 55.1 mmHg (41-51); VBG PO2 67.7 mmHg (25-47); VBG TOTAL CO2 21.5 mmol/L (24-29)
[2023-03-06 21:34] LABS: PARTIAL THROMBOPLASTIN TIME 30.2 secs (24.9-33.3); VBG PH 7.173 (7.31-7.41)
[2023-03-06 21:37] LABS: CALCIUM 7.7 mg/dL (8.5-10.3); CREATININE 0.6 mg/dL (0.6-1.3); MAGNESIUM 1.7 mg/dL (1.7-2.3); POTASSIUM 4.7 mmol/L (3.5-4.5)
[2023-03-06 21:40] LABS: INR 1.4 (0.8-1.2); PT - PROTHROMBIN TIME 14.5 secs (9.9-12.6)
[2023-03-06 21:42] LABS: MAGNESIUM 1.7 mg/dL (1.7-2.3)
[2023-03-06 23:07] VITALS: BP 101/71; O2SAT 98
== END 2023-03-06 21:40 | disposition short-term general hospital (02) ==
LOC: EDUNIT# → ED 19:29
DX: K92.2 Gastrointestinal hemorrhage, unspecified (principal); R57.9 Shock, unspecified; Z79.01 Long term (current) use of anticoagulants
CPT/HCPCS: 31500; 36415; 36430; 36556; 36600; 80048; 80053; 82803; 83605; 83735; 84100; 85025; 85027; 85384; 85610; 85730; 86850; 86900; 86901; 86920; 87635; 93005; 94002; 96374; 96375; 99291; J2354; J3010; J7168; P9012; P9016; P9017; P9037; 82330

== ENCOUNTER 2023-05-26 13:12 | Outpatient (CLI) | payer MEDICARE, OTHER | END 2023-05-26 13:13 | disposition home or self-care (01) | LOC: EMS 13:12 | DX: R53.1 Weakness (principal); Z74.09 Other reduced mobility; F03.90 Unspecified dementia, unspecified severity, without behavioral disturbance, psychotic disturbance, mood disturbance, and anxiety | CPT/HCPCS: A0425; A0428 ==

== ENCOUNTER 2023-07-06 17:19 | Outpatient (CLI) | payer MEDICARE, OTHER | END 2023-07-06 17:20 | disposition short-term general hospital (02) | LOC: EMS 17:19 | DX: R41.82 Altered mental status, unspecified (principal); R53.1 Weakness; R00.0 Tachycardia, unspecified; R09.89 Other specified symptoms and signs involving the circulatory and respiratory systems; R47.1 Dysarthria and anarthria; R11.10 Vomiting, unspecified; R32 Unspecified urinary incontinence; R39.89 Other symptoms and signs involving the genitourinary system; R50.9 Fever, unspecified | CPT/HCPCS: A0425; A0427 ==

== ENCOUNTER 2023-09-12 08:30 | Outpatient (CLI) | payer MEDICARE, OTHER | END 2023-09-12 23:59 | disposition EMS.NT | LOC: EMS 08:30 | DX: Z03.89 Encounter for observation for other suspected diseases and conditions ruled out (principal) ==

== ENCOUNTER 2023-11-27 19:20 | Outpatient (CLI) | payer MEDICARE, OTHER | END 2023-11-27 23:59 | disposition EMS.NT | LOC: EMS 19:20 | DX: Z03.89 Encounter for observation for other suspected diseases and conditions ruled out (principal) ==